=== PATIENT | male | born 1975 | race African-American/Black ===

== ENCOUNTER 2024-10-02 15:59 | Emergency (ER) | payer OTHER, SELFPAY ==
[2024-10-02] VITALS (22 sets, daily range): BP systolic 185–239; BP diastolic 94–124; PULSE 77–103; RESP 13–24; TEMP 36.8–37.1; O2SAT 94–99; BMI 34.2
--- NOTE | 2024-10-02 16:21 | DI.RAD.S_ITS ---
PROCEDURE: XR CHEST 1V INDICATIONS: chest pain TECHNIQUE: One view of the chest was acquired. COMPARISON: None. FINDINGS: Surgical changes and devices: None. Lungs and pleura: Low lung volumes without a focal lung consolidation. No pleural effusions or pneumothorax. Mediastinum: Mediastinal contours appear normal. Heart size is normal. Bones and chest wall: No suspicious bony lesions. Overlying soft tissues appear unremarkable. IMPRESSION: No acute cardiothoracic process. Dictated by: Atif Garrison M.D. on 10/02/2024 at 15:58 Approved by: Aitf Garrison M.D. on 10/02/2024 at 15:58
--- NOTE | 2024-10-02 16:31 | EKG_ITS ---
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
[2024-10-02 16:43] LABS: Add Manual Diff / Slide Review NO; Basophils Absolute Auto 100 /uL (0-100); Basophils Percent Auto 1.7 % (0-2); Eosinophils Absolute Auto 100 /uL (0-450); Eosinophils Percent Auto 0.7 % (2-4); Hematocrit 42.9 % (41-53); Hemoglobin 14.6 g/dL (13.5-17.5); Lymphocytes Absolute Auto 2000 /uL (1100-4500); Lymphocytes Percent Auto 25.5 % (25-40); Mean Corpuscular Volume 82.1 fL (80-100); Monocytes Absolute Auto 300 /uL (0-900); Monocytes Percent Auto 3.8 % (3-14); Neutrophils Absolute Auto 5400 /uL (1500-7000); Neutrophils Percent Auto 68.3 % (50-75); Platelet Count 220 X10^3/uL (150-400); Red Blood Cell Count 5.23 X10^6/uL (4.5-5.9); Red Cell Distribution Width 13.3 % (11.6-14.8); White Blood Cell Count 7.9 X10^3/uL (4.5-11.0)
[2024-10-02 16:49] LABS: INR 0.8 (0.9-1.3); Prothrombin Time 9.5 SECONDS (9.4-12.5)
[2024-10-02 16:52] LABS: PTT Partial Thromboplastin Tim 22 SECONDS (25.1-36.5)
[2024-10-02] MEDS: HYDROMORPHONE 0.5 MG INJ IV ×2 (16:52→17:38)
[2024-10-02 16:54] LABS: Alanine Aminotransferase 38 IU/L (<50); Albumin 4.4 g/dL (3.5-5.0); Albumin Globulin Ratio 1.1 (1.0-2.8); Alkaline Phosphatase 128 U/L (38-126); Aspartate Aminotransferase 38 IU/L (17-59); BUN Creatinine Ratio 17.5 (6-22); Bilirubin Total 0.7 mg/dL (0.2-1.3); Blood Urea Nitrogen 20 mg/dL (9-20); Calcium 9.8 mg/dL (8.4-10.2); Carbon Dioxide 22 mmol/L (22-32); Chloride 98 mmol/L (98-107); Creatine Kinase 589 U/L (55-170); Estimated Glomerular Filt Rate > 60 mL/min (>60); Glucose 382 mg/dL (70-100); HEMOLYSIS 28 (0-50); Lipase 85 U/L (23-300); Potassium 4.3 mmol/L (3.4-5.1); Sodium 131 mmol/L (137-145); Total Protein 8.4 g/dL (6.3-8.2)
[2024-10-02 17:05] LABS: NT-proBNP (BNP-Adult 18+) 147 pg/mL (<125); Troponin I < 0.012 ng/mL (0.01-0.034)
--- NOTE | 2024-10-02 17:29 | DI.CT.S_ITS ---
PROCEDURE: CT ABDOMEN PELVIS WO CON INDICATIONS: high BP, abd pain TECHNIQUE: Axial sections were acquired from the lung bases to the pubic symphysis without the use of intravenous contrast. Coronal and sagittal reformats were performed. For radiation dose reduction, the following was used: automated exposure control, adjustment of mA and/or kV according to patient size. COMPARISON: None. FINDINGS: Image quality: Diagnostic. Peritoneum: No pneumoperitoneum or ascites. Bones: No acute osseous abnormality. Lower Chest: No acute abnormality. Liver: Normal in size and contour. Gallbladder: No stones or pericholecystic fluid. Biliary tree: No intrahepatic or extrahepatic biliary ductal dilatation. Pancreas: Within normal limits. Spleen: Normal in size and contour. Kidneys: No hydronephrosis or obstructive urolithiasis. Adrenals: No adrenal nodularity. Bladder: Mildly distended urinary bladder, possibly secondary to delayed voiding. : No acute abnormality. Stomach: Normal in size and contour. Bowel: Normal in diameter without any bowel obstruction. Appendix within normal limits (4/45). Lymph Nodes: No retroperitoneal, mesenteric, or inguinal lymphadenopathy. Vascular: No abdominal aortic aneurysm. The visualized arterial vasculature is patent. Soft Tissues: No acute abnormality. IMPRESSION: No acute CT abnormality of the abdomen/pelvis. Dictated by: Atif Garrison M.D. on 10/02/2024 at 17:31 Approved by: Aitf Garrison M.D. on 10/02/2024 at 17:34
--- NOTE | 2024-10-02 17:29 | PC.NURSE ---
SBP remains >200 Dr Jones notified. Verbal order received for hydralazine 5 mg.
[2024-10-02] MEDS: HYDRALAZINE 20 MG/ML VIAL 5 MG IV (17:33)
[2024-10-02] MEDS: KETOROLAC 30 MG/ML VIAL 15 MG IV (17:39)
[2024-10-02 18:37] LABS: Urine Volume 10mL (spun)
[2024-10-02 18:38] LABS: Bacteria Urine None Seen; RBC Urine 1-5/HPF (0-5/HPF); Squamous Epithelial Cell Urine None Seen (0-5/HPF); WBC Urine None Seen (0-5/HPF)
--- NOTE | 2024-10-02 18:44 | ED_ITS ---
HPI - Abdominal Pain General Chief Complaint: Abdominal Pain Stated Complaint: abd px Time Seen by Provider: 10/02/24 16:47 Source: patient, RN notes reviewed and old records reviewed Mode of arrival: Ambulatory Limitations: no limitations History of Present Illness HPI narrative: 49-year-old male known history of hypertension and diabetes currently untreated presents with complaint of right lower quadrant pain for proximally week has not been improving. Patient states it has been slowly worsening. States he has had some chills today. Denies any fevers. No chest pain or shortness of breath. No syncope. No nausea or vomiting. States his bowel movements have been sort of loose but no black or bloody stools. Denies any dysuria urgency or frequency. Denies any rash or skin changes. Patient did urinate right after his initial CT. States he was supposed to be on medications for blood pressure and his blood glucose but does not take them. Had prior finger injury reattachment. Patient reports allergy to IV iodine, shellfish and nuts. States he had allergic reaction describes shaking and vomiting states the code team came but was not intubated. Has not had contrast with pretreatment in the past. Does use tobacco, does drink alcohol mostly on the weekends, denies any recreational drugs besides THC. Related Data Previous Rx's Medication Instructions Recorded amlodipine 5 mg tablet 5 mg PO DAILY #20 tabs 10/02/24 Allergies Allergy/AdvReac Type Severity Reaction Status Date / Time iodine Allergy Verified 10/02/24 16:12 latex Allergy Verified 10/02/24 16:12 shellfish derived Allergy Verified 10/02/24 16:12 tree nut Allergy Verified 10/02/24 16:12 Review of Systems Review of Systems ROS Unobtainable: All systems reviewed & are unremarkable except as noted in HPI and below Patient History Social History Smoking Status: Former smoker Smoking Status: Former smoker Exam Narrative Exam Narrative: GENERAL: Alert and oriented x three, male in mild distress HEENT: Head normocephalic, atraumatic, EOMI, pupils reactive, face symmetric, moist mucous membranes NECK: Supple, full range of motion CARDIOVASCULAR: Regular rate and rhythm without murmurs, rubs or gallops. RESPIRATORY: Breath sounds equal bilaterally, no wheezes rales or rhonchi. ABDOMEN: Soft, for right lower quadrant tenderness. Normoactive bowel sounds all 4 quadrants. No guarding or rebound, rigidity, no mass, no pulsatile mass or bruit. : No CVA tenderness EXTREMITIES: Normal range of motion, no clubbing or edema. Neurovascularly intact NEUROLOGICAL: Cranial nerves II through XII grossly intact. Moving all extremities SKIN: Warm, dry, no petechiae, no rashes or lesions. Initial Vital Signs Initial Vital Signs: Vital Signs Temperature 98.8 F 10/02/24 16:07 Pulse Rate 103 H 10/02/24 16:07 Respiratory Rate 16 10/02/24 16:07 Blood Pressure 224/110 H 10/02/24 16:07 Pulse Oximetry 98 10/02/24 16:07 Oxygen Delivery Method Room Air 10/02/24 16:07 Course Orders Ordered: ED Orders 10/02/24 17:29 CT abdomen pelvis wo con Stat 10/02/24 18:05 Urine Culture Stat Urine Microscopic Stat 10/02/24 19:25 CT angio chest abdomen pelvis Stat Discontinued Medications Hydrocodone Bitart/Acetaminophen (Hydrocodone/Acet 5/325 Prepack) 1 bottle MISC DIRECTED ONE Stop: 10/02/24 21:24 Last Admin: 10/02/24 21:36 Dose: 1 bottle Documented By: JOSEFA Diphenhydramine HCl (Diphenhydramine 50 Mg/Ml Vial) 50 mg IV NOW ONE Stop: 10/02/24 19:25 Last Admin: 10/02/24 19:31 Dose: 50 mg Documented By: Hydralazine HCl (Hydralazine 20 Mg/Ml Vial) 5 mg IV NOW ONE Stop: 10/02/24 17:32 Last Admin: 10/02/24 17:33 Dose: 5 mg Documented By: Hydromorphone HCl (Hydromorphone 0.5 Mg Inj) 0.5 mg IV NOW ONE Stop: 10/02/24 16:48 Last Admin: 10/02/24 16:52 Dose: 0.5 mg Documented By: Hydromorphone HCl (Hydromorphone 0.5 Mg Inj) 0.5 mg IV NOW ONE Stop: 10/02/24 17:37 Last Admin: 10/02/24 17:38 Dose: 0.5 mg Documented By: Hydromorphone HCl (Hydromorphone 1 Mg Inj) 1 mg IV NOW ONE Stop: 10/02/24 19:32 Last Admin: 10/02/24 19:33 Dose: 1 mg Documented By: Ketorolac Tromethamine (Ketorolac 30 Mg/Ml Vial) 15 mg IV NOW ONE Stop: 10/02/24 17:37 Last Admin: 10/02/24 17:39 Dose: 15 mg Documented By: Methylprednisolone (Methylprednisolone 125 Mg/2 Ml Vial) 125 mg IV NOW ONE Stop: 10/02/24 19:25 Last Admin: 10/02/24 19:31 Dose: 125 mg Documented By: Metoprolol Tartrate (Metoprolol Ir 25 Mg Tablet) 25 mg PO NOW ONE Stop: 10/02/24 20:05 Last Admin: 10/02/24 20:08 Dose: 25 mg Documented By: Ondansetron HCl (Ondansetron 4 Mg/2 Ml Inj) 4 mg IV NOW PRN PRN Reason: Nausea And Vomiting Ondansetron HCl (Ondansetron 4 Mg Odt) 4 mg PO NOW PRN PRN Reason: Nausea And Vomiting Vital Signs Vital signs: Vital Signs - 8 hr 10/02/24 18:09 10/02/24 18:10 10/02/24 18:10 Temperature Pulse Rate 88 85 Respiratory Rate 13 Blood Pressure 210/109 H Pulse Oximetry 99 98 Oxygen Delivery Method 10/02/24 18:30 10/02/24 18:30 10/02/24 18:36 Temperature Pulse Rate 81 89 Respiratory Rate 16 Blood Pressure 204/113 H 206/110 H Pulse Oximetry 99 Oxygen Delivery Method 10/02/24 19:00 10/02/24 19:00 10/02/24 19:30 Temperature Pulse Rate 81 Respiratory Rate 20 Blood Pressure 201/108 H 214/111 H Pulse Oximetry 99 Oxygen Delivery Method Room Air 10/02/24 19:30 10/02/24 20:01 10/02/24 20:02 Temperature Pulse Rate 78 90 88 Respiratory Rate 20 14 Blood Pressure Pulse Oximetry 98 99 98 Oxygen Delivery Method 10/02/24 20:02 10/02/24 20:03 10/02/24 20:03 Temperature Pulse Rate 86 Respiratory Rate 14 Blood Pressure 239/119 H 232/124 H Pulse Oximetry 97 Oxygen Delivery Method 10/02/24 20:30 10/02/24 20:30 10/02/24 21:00 Temperature Pulse Rate 79 Respiratory Rate 18 Blood Pressure 214/115 H 213/103 H Pulse Oximetry 94 Oxygen Delivery Method Room Air 10/02/24 21:00 10/02/24 21:27 10/02/24 21:27 Temperature Pulse Rate 80 77 Respiratory Rate 16 17 Blood Pressure 201/94 H Pulse Oximetry 95 Oxygen Delivery Method Room Air 10/02/24 21:30 10/02/24 21:42 Temperature 98.2 F Pulse Rate 80 Respiratory Rate Blood Pressure Pulse Oximetry 99 Oxygen Delivery Method Room Air MDM - Abdominal Pain Lab Data 10/02/24 16:26 10/02/24 16:26 Labs: Lab Results 10/02/24 10/02/24 Range/Units 16:26 18:05 WBC 7.9 (4.5-11.0) X10^3/uL RBC 5.23 (4.5-5.9) X10^6/uL Hgb 14.6 (13.5-17.5) g/dL Hct 42.9 (41-53) % MCV 82.1 (80-100) fL MCH 28.0 (26-34) PG MCHC 34.0 (30-36) % RDW 13.3 (11.6-14.8) % Plt Count 220 (150-400) X10^3/uL Neut % (Auto) 68.3 (50-75) % Lymph % (Auto) 25.5 (25-40) % [place] % (Auto) 3.8 (3-14) % Eos % (Auto) 0.7 L (2-4) % Baso % (Auto) 1.7 (0-2) % Neut # (Auto) 5400 (7478-1290) /uL Lymph # (Auto) 2000 (4237-5223) /uL [place] # (Auto) 300 (0-900) /uL Eos # (Auto) 100 (0-450) /uL Baso # (Auto) 100 (0-100) /uL PT 9.5 (9.4-12.5) SECONDS INR 0.8 L (0.9-1.3) APTT 22 L (25.1-36.5) SECONDS Sodium 131 L (137-145) mmol/L Potassium 4.3 (3.4-5.1) mmol/L Chloride 98 (98-107) mmol/L Carbon Dioxide 22 (22-32) mmol/L BUN 20 (9-20) mg/dL Creatinine 1.14 (0.66-1.25) mg/dL Estimated GFR > 60 (>60) mL/min BUN/Creatinine Ratio 17.5 (6-22) Glucose 382 H (70-100) mg/dL Calcium 9.8 (8.4-10.2) mg/dL Magnesium 2.0 (1.6-2.3) mg/dL Total Bilirubin 0.7 (0.2-1.3) mg/dL AST 38 (17-59) IU/L ALT 38 (<50) IU/L Alkaline Phosphatase 128 H (38-126) U/L Total Creatine Kinase 589 H (55-170) U/L Troponin I < 0.012 (0.01-0.034) ng/mL NT-Pro-B Natriuret Pep 147 H (<125) pg/mL Total Protein 8.4 H (6.3-8.2) g/dL Albumin 4.4 (3.5-5.0) g/dL Globulin 4.0 (1.7-4.1) g/dL Albumin/Globulin Ratio 1.1 (1.0-2.8) Lipase 85 (23-300) U/L Urine RBC 1-5/hpf (0-5/HPF) Urine WBC None seen (0-5/HPF) Ur Squamous Epith Cells None seen (0-5/HPF) Urine Bacteria None seen (None) Vol Urine Centrifuged 10ml (spun) Point of care testing: Urine Dip Bedside Urine Glucose 100 mg/dl Bedside Urine Bilirubin - Negative Bedside Urine Ketone - Negative Urine Specific [place] 1.015 Bedside Urine Occult Blood ++ Bedside Urine pH 5.5 Bedside Urine Protein - Negative Bedside Urine Urobilinogen +/- 1mg Bedside Urine Nitrite - Negative Bedside Urine Leukocytes - Negative Esterase MDM Narrative Medical decision making narrative: Some show normal hemoglobin, white count and platelets. INR 0.8 sodium 131 electrolytes otherwise normal creatinine is 1.14 glucose of 382, alk-phos is 128, total CK is 589. Troponins less than 0.012 with a BNP of 147. Urine shows blood, no nitrates negative leuks. Glucose is 100. 1-5 RBCs no RBCs no squamous no bacteria. Chest x-ray no acute process CT abdomen pelvis shows mildly distended urinary bladder possibly secondary to lay voiding. No acute CT abnormality of the abdomen and pelvis. EKG shows sinus rhythm rate of 94 DC 200 QRS of 92 QTC of 362, possible left atrial enlargement, left axis deviation. CTA chest abdomen and pelvis dissection protocol shows left upper lobe 1.5 cm soft tissue density anterior to the spleen unchanged likely a splenule they noted left ovarian cyst but patient does not have ovaries, Dr. Cristobal corrected and patient has left renal cyst. Otherwise stable interval exam demonstrating no acute process chest abdomen pelvis aorta demonstrates no area to hemodynamically significant stenosis vascular occlusion aneurysmal dilation or dissection. Patient had Dilaudid, Toradol and hydralazine. 49-year-old male with complaint of right lower abdominal pain started a week words ports pain is worse today and has chills. Patient's initial workup does not show a clear source noted bladder is little bit distended but patient's feet immediately after CT he does have little bit of right lower quadrant tenderness no skin changes CT non-con does not show clear changes quite hypertensive discussed risks versus benefits of IV contrast to evaluate for aneurysm versus dissection there was no secondary signs of appendicitis appendix self is normal limits. Patient does not have obvious stone or signs hydro. After discussion risks versus benefits we will pretreat with Benadryl and Solu-Medrol and obtain CT angio dissection protocol. Patient continues to be quite hypertensive he has known hypertension that has been untreated he states that he does not wish to seek treatment for it. Discussed with patient return precautions and I highly recommend that he has his diabetes and hypertension treated as long terms he was high-risk for strokes, heart attacks and other end-organ disease. Patient is agreeable to have a script for short term sent and he states he will follow up with primary care discussed can follow up for possible colonoscopy if pain is persisting but no clear source was found today. Patient feels comfortable with the plan. Discharge Plan Departure Patient Disposition: Home Clinical Impression: Abdominal pain, right lower quadrant Activity Restrictions/Additional Instructions: Your workup today did not show any changes to the blood vessels, your appendix appears to be normal a clear cause for your right-sided abdominal pain was not found. Please follow up if it is continuing to persist. Sometimes individuals can have issues with the colon that can not be found accept on colonoscopy. Contacts included below. Your blood pressure is quite elevated here today so is your blood glucose I would recommend following up with primary care to have these treated. Your physician may change or adjust the medications that were sent today. Take prescription for your blood pressure as prescribed, was sent to [facility] in [place]. You can take pain medication as prescribed. This medication can make you sleepy do not drive, perform hazardous activities or make any major decisions while taking it. This medication will make you constipated please take a stool softener once to twice daily until stools are soft and regular. Please return for fevers, vomiting, new black or bloody stools, lightheadedness or passing out or other new or concerning changes. Prescriptions: New amlodipine 5 mg tablet 5 mg PO DAILY Qty: 20 0RF Referrals: Aman Peacock MD [Physician] - Miscellaneous,MD Kylee [Primary Care Provider] - Stand Alone Forms: Patient Portal/API/Survey
--- NOTE | 2024-10-02 19:25 | DI.CT.S_ITS ---
PROCEDURE: CT ANGIO CHEST ABDOMEN PELVIS INDICATIONS: abd pain, RLQ, htn TECHNIQUE: Precontrast 5 mm thick sections acquired from the lung apices to the iliac crests. After the administration of intravenous contrast, 2.5 mm thick sections again acquired from the lung apices to the iliac crests. Maximum intensity projection (MIP) oblique sagittal and coronal reformats were then acquired. For radiation dose reduction, the following was used: automated exposure control. COMPARISON: [facility], CT, CT ABDOMEN PELVIS WO CON, 10/02/2024, 17:59. FINDINGS: Image quality: Diagnostic. AORTA: No aortic aneurysm. No acute aortic syndrome. CHEST: Lower Neck: No enlarged lymph nodes. Thyroid: No thyroid nodules which require sonographic evaluation. Axillae: No enlarged lymph nodes. Chest Wall: Unremarkable. Lungs and Pleura: No pneumothorax or pleural effusions. No consolidation or suspicious nodules. Heart: Heart size is normal. No pericardial effusion. Thoracic Vessels: Pulmonary arteries demonstrate normal size. Mediastinum and [place]: No enlarged lymph nodes. Esophagus: No wall thickening. No hiatal hernia. ABDOMEN: Liver: No solid mass. Gallbladder: No radiopaque gallstones or wall thickening. Biliary ducts: No biliary dilation. Pancreas: No ductal dilation. Spleen: Size is within normal limits. Left upper lobe 1.5 cm soft tissue density anterior to the spleen unchanged likely splenule. Adrenal Glands: No adrenal nodules. Kidneys and Ureters: No hydronephrosis. Left ovarian cyst. Stomach and Bowel: Normal colonic caliber, without significant wall thickening. Appendix is normal. Peritoneum: No abnormal intraperitoneal fluid. No free air. Ventral Wall: No hernia. Abdominal Nodes: No retroperitoneal or mesenteric adenopathy by size criteria. Vessels: Inferior vena cava is normal in size. PELVIS: Pelvic Organs: Unremarkable. Bladder: Unremarkable. Pelvic Nodes: No enlarged lymph nodes. Miscellaneous: No inguinal hernias are seen. Bones: Unremarkable. IMPRESSION: Stable interval exam demonstrating no acute process in the chest, abdomen or pelvis. Aorta demonstrates no areas of hemodynamically significant stenosis, vascular occlusion, aneurysmal dilation or dissection. Dictated by: Rachelle Cristobal M.D. on 10/02/2024 at 20:51 Approved by: Rachelle Cristobal M.D. on 10/02/2024 at 20:56
[2024-10-02] MEDS: methylPREDNISolone 125 MG/2 ML VIAL IV (19:31)
[2024-10-02] MEDS: diphenhydrAMINE 50 MG/ML VIAL IV (19:31)
[2024-10-02] MEDS: HYDROMORPHONE 1 MG INJ IV (19:33)
--- NOTE | 2024-10-02 20:03 | PC.NURSE ---
Pt returned from CT scan. Denies feeling SOB. BP232/124 Dr Sanchez notified. new orders received.
[2024-10-02] MEDS: METOPROLOL IR 25 MG TABLET PO (20:08)
[2024-10-02] MEDS: HYDROCODONE/ACET 5/325 PREPACK 1 BOTTLE MISC (21:36)
--- NOTE | 2024-10-02 22:57 | PC.NURSE ---
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 Placed in a envelope at nursing station chart [facility]nderson with his facesheet on the front.
== END 2024-10-02 21:42 | disposition home or self-care (01) ==
PROVIDERS: Emergency Medicine; Emergency Provider Emergency Medicine
DX: R10.31 Right lower quadrant pain (principal); I10 Essential (primary) hypertension; E11.65 Type 2 diabetes mellitus with hyperglycemia; Z87.891 Personal history of nicotine dependence
CPT/HCPCS: 36415; 71045; 71275; 74174; 74176; 80053; 81003; 81015; 82550; 83690; 83735; 83880; 84484; 85025; 85610; 85730; 87086; 93005; 93010; 96374; 96375; 96376; 99284; J0360; J1171; J1200; J1885; J2919; Q9967